=== PATIENT | female | born 1995 | race Asian ===

== ENCOUNTER 2016-05-02 04:49 | Day surgery (SDC) | payer OTHER ==
[2016-05-02] MEDS ORDERED: LACTATED RINGERS 1,000 ML ONE ×3 (04:57→08:18)
[2016-05-02 05:15] LABS: ABSOLUTE NEUTROPHIL COUNT 2.3 K/mm3 (1.8-7.7); BASO % 0.3 % (0.2-1.0); EOS # 0.1 (0.0-0.5); EOS % 1.4 % (0.9-2.9); HEMATOCRIT 31.1 % (37.0-47.0); HEMOGLOBIN 10.2 gm/l (12.0-16.0); IMM NEUT% 0.1 % (0-1); LYMPH # 4.4 (1.0-4.8); MEAN CELL VOLUME 89.4 fl (81.0-99.0); MEAN CORPUSCULAR HEMOGLOBIN 29.3 pg (27.0-31.0); MEAN CORPUSCULAR HGB CONC 32.8 g/dl (33.0-37.0); MEAN PLATELET VOLUME 9.2 fl (7.4-10.4); MONO # 0.5 (0.0-0.8); NEUT % 31.2 % (43-75); PLATELET COUNT 333 K/mm3 (130-400); RED CELL DISTRIBUTION WIDTH 11.9 % (11.5-14.5)
[2016-05-02 06:53] LABS: SPECIFIC GRAVITY 1.025 (1.001-1.030); URINE BILIRUBIN NEGATIVE (NEGATIVE); URINE BLOOD 4+ (NEGATIVE); URINE GLUCOSE (UA) NEGATIVE (NEGATIVE); URINE LEUKOCYTE ESTERASE NEGATIVE (NEGATIVE); URINE NITRITE NEGATIVE (NEGATIVE); URINE PROTEIN NEGATIVE (NEGATIVE); URINE UROBILINOGEN NORMAL (0-1 mg/dl)
[2016-05-02 06:54] LABS: URINE APPEARANCE SL CLOUDY; URINE COLOR YELLOW
[2016-05-02 07:01] LABS: HEMATOCRIT 25.9 % (37.0-47.0); HEMOGLOBIN 8.4 gm/l (12.0-16.0)
[2016-05-02 07:06] LABS: URINE RBC >100 /hpf; URINE WBC 0-1 /hpf
[2016-05-02] MEDS ORDERED: CEFAZOLIN SODIUM 2 GRAM PREMIX 100 ML IV PRN (08:21)
[2016-05-02] MEDS ORDERED: LIDOCAINE 1% 2 ML VIAL ID PRN (08:21)
--- NOTE | 2016-05-02 08:22 | US ---
Exam: Complete pelvic ultrasound COMPARISON: None INDICATION: 6 weeks with heavy bleeding. Evaluate for retained products of conception. FINDINGS: Transabdominal pelvic ultrasound was obtained. Patient refused transvaginal imaging. Uterus measures 10.9 x 6.3 x 7.2 cm and is overall homogeneous in echotexture. The central lower uterine segment is expanded by a heterogeneous focus of tissue which measures up to 4.1 x 4.8 x 4.7 cm. Endometrium within the fundus is normal at 10 mm. Neither ovary was visualized. There is minimal amount of free fluid in the pelvis, within physiologic range. IMPRESSION: Heterogeneous tissue within the lower uterine segment concerning for retained products of conception given the patient's history. Preliminary report transmitted to the emergency department from [facility] at 0657 hours 05/02/2016.
[2016-05-02] MEDS ORDERED: OXYTOCIN IN LR 500 ML IV ONE (08:23)
[2016-05-02] MEDS ORDERED: FENTANYL 100 MCG/2 ML VIAL ONE (08:36)
[2016-05-02] MEDS ORDERED: ONDANSETRON 4 MG/2ML 2 ML VIAL ONE (09:23)
[2016-05-02] MEDS ORDERED: KETOROLAC TROMETHAMINE 30 MG/ML 1 ML VIAL ONE (09:23)
[2016-05-02] MEDS ORDERED: OXYTOCIN 10 UNITS/ML VIAL ONE (09:23)
[2016-05-02] MEDS ORDERED: CEFAZOLIN SODIUM 1,000 MG VIAL ONE (09:23)
[2016-05-02] MEDS ORDERED: PROPOFOL 20 ML IV ONE (09:23)
[2016-05-02] MEDS ORDERED: METOCLOPRAMIDE HCL 5 MG/ML 2ML VIAL ONE (09:23)
[2016-05-02] MEDS ORDERED: PROMETHAZINE HCL 25 MG/ML VIAL IM PRN (09:43)
[2016-05-02] MEDS ORDERED: ONDANSETRON 4 MG/2ML 2 ML VIAL IV PRN (09:43)
[2016-05-02] MEDS ORDERED: NALOXONE HCL 0.4 MG/ML VIAL IV PRN (09:43)
[2016-05-02] MEDS ORDERED: MEPERIDINE 25 MG/ML SYRINGE IV PRN (09:43)
[2016-05-02] MEDS ORDERED: HYDRALAZINE HCL 20 MG/1 ML VIAL IV PRN (09:43)
[2016-05-02] MEDS ORDERED: MORPHINE SULFATE 4 MG/ML SYRINGE IV PRN (09:43)
[2016-05-02] MEDS ORDERED: ATROPINE SULFATE 0.4 MG/1 ML VIAL IV PRN (09:43)
[2016-05-02] MEDS ORDERED: OXYTOCIN 20 UNITS in LACTATED RINGERS 1,000 ML IV SCH (09:45)
[2016-05-02] MEDS ORDERED: DIPHENHYDRAMINE HCL 25 MG CAPSULE PO PRN (09:47)
[2016-05-02] MEDS ORDERED: OXYCODONE/ACETAMINOPHEN 5/325 MG TABLET PO PRN (09:47)
--- NOTE | 2016-05-02 11:32 | HP ---
KESHAWN MARTINEZ [id number] DATE OF : 1995 HISTORY OF PRESENT ILLNESS: This is a 21-year-old female who presented to the emergency room with heavy vaginal bleeding, onset was two days ago, and this morning she woke-up and passed some clots. She was seen in the emergency room. Her initial hemoglobin was 10.2. Her hemoglobin after starting an IV dropped to 8.4. She gives a history of having a twin gestation and delivery at [address] weeks [address] [facility] approximately six weeks ago. She complains of some dizziness. Ultrasound in the ER showed what appears to be retained products of conception, measuring roughly 5 x 5 x 5 cm in greatest dimensions. OB HISTORY: G-1, P-0, 1-0-0. Twin gestation and delivery at 23 weeks. The babies did not survive. The patient states that she had premature rupture of membranes. ELECTRICAL ENGINEER MEP HISTORY: Menarche 13 x 30 x 5-6. STDs negative. PAST MEDICAL HISTORY: Negative. ALLERGIES: Negative. MEDICATIONS: Negative. SOCIAL HISTORY: Nonsmoker and nondrinker. PAST SURGICAL HISTORY: Negative. FAMILY HISTORY: Negative. REVIEW OF SYSTEMS: As above. PHYSICAL EXAMINATION: GENERAL: A healthy female in no acute distress. HEENT: Normal. NECK: Supple. Thyroid not palpable. BREASTS: Soft. No masses. HEART: Regular sinus rhythm. No murmurs. LUNGS: Clear. ABDOMEN: Flat and benign. PELVIC: External genitalia healthy. Vagina had about 10 mL of blood present in the vagina on speculum exam. The cervix was fingertip dilated, mildly tender. The uterus was 8-10 week size and midposition. The adnexa were negative. IMPRESSION: Delayed hemorrhage and retained products of conception. PLAN: A D&C and possible suction curettage. The risks, reasons, complications, living will and alternatives were discussed, all in layperson's terms, and all questions answered.
[2016-05-02 12:08] VITALS: BMI 21.3
[2016-05-02 13:54] VITALS: BP 88/48
[2016-05-02 14:15] LABS: SPECIFIC GRAVITY 1.015 (1.001-1.030); URINE BILIRUBIN NEGATIVE (NEGATIVE); URINE BLOOD 4+ (NEGATIVE); URINE GLUCOSE (UA) NEGATIVE (NEGATIVE); URINE LEUKOCYTE ESTERASE TRACE (NEGATIVE); URINE NITRITE NEGATIVE (NEGATIVE); URINE PROTEIN NEGATIVE (NEGATIVE); URINE UROBILINOGEN NORMAL (0-1 mg/dl)
[2016-05-02 14:17] LABS: URINE APPEARANCE CLOUDY; URINE COLOR LIGHT YELLOW
[2016-05-02 14:27] LABS: URINE EPITHELIAL CELLS 0-1 /hpf; URINE RBC >100 /hpf; URINE WBC NEG /hpf
[2016-05-02 14:28] LABS: URINE BACTERIA FEW
[2016-05-02] MEDS ORDERED: IBUPROFEN 800 MG TABLET PO PRN (15:30)
--- NOTE | 2016-05-02 16:28 | OP ---
KESHAWN MARTINEZ [id number] DATE OF : 1995 NAME OF OPERATION: REMOVAL OF PRODUCTS OF CONCEPTION MANUALLY, FOLLOWED BY UTERINE CURETTAGE. PREOPERATIVE DIAGNOSIS: Delayed hemorrhage, retained products of conception and anemia. POSTOPERATIVE DIAGNOSIS: Delayed hemorrhage, retained products of conception and anemia. SOFTWARE DEVELOPER INTERN: Dr. Ty Baeza ANESTHESIA: Cassi Coelho CRNA, general anesthesia. DESCRIPTION OF PROCEDURE: With the patient under general anesthesia, the local area was prepared with betadine and draped in the usual manner. After a time-out was performed, exam under anesthesia revealed the external genitalia healthy. Vagina showed about 10 mL of blood present. The cervix was now dilated 2 cm, with aborting products of conception noted at the os. The uterus was six week size and anteverted. The adnexa negative. PROCEDURE: A duckbill speculum was inserted into the vagina gently. The anterior lip of the cervix was grasped with a ring forceps. The products of conception were grasped with another ring forceps and manually removed. There was no need to dilate the cervix. The cervix after removal of the products of conception was 2 cm dilated. The uterus was sounded to 7 cm and then curettage from the endometrial cavity produced no further curettings and there was a gritty sensation appreciated over the entire endometrial cavity. Products of conception were inspected. There were approximately 5 cm in diameter of products of conception noted. The uterus was massaged manually and the bleeding was controlled after manual massage. The patient did receive Pitocin during the procedure and Ancef preoperatively. After this, all of the vaginal instruments were removed. Sponge and instrument count report is correct, and there was complete hemostasis. Estimated blood loss for the procedure was 50 mL. The patient tolerated the procedure well and was returned to the recovery room in stable condition. FINAL DIAGNOSIS: As above.
--- NOTE | 2016-05-02 16:42 | DS ---
KESHAWN MARTINEZ [id number] DATE OF : 1995 HOSPITAL COURSE: A 21-year-old female presented to the emergency room with retained products of conception following a twin gestation and premature delivery at 23 weeks. Six weeks prior to presenting to the emergency room she presented with uterine and vaginal bleeding. At the time in the emergency room the cervix was closed and the ultrasound showed an approximately 5 cm diameter mass in the uterus, suggestive of retained products of conception. She underwent a uterine curettage and manual removal of the products of conception under anesthesia. She tolerated the procedure well and was sent home in good condition, and advised office visit in one week's time. Activities were explained to the patient prior to her going under anesthesia. LABS: Laboratory values included a hemoglobin of 8.4 and white count 7.3. Chemistry; glucose 121 and potassium 3.4. Urinalysis showed 4+ blood. Her blood type was Rh positive. DISCHARGE MEDICATIONS: On discharge she was given: 1. Iron. 2. Methergine. 3. Percocet. 4. Motrin. 5. Amoxicillin. FINAL DIAGNOSIS: As above.
--- NOTE | 2016-05-06 16:09 | SURGPATH ---
[facility] [address] [place] [id number] Patient Name: KESHAWN MARTINEZ MR#: [id number] : 1995 Gender: F Specimen #: [id number] Collected: 05/02/2016 Received: 05/05/2016 Reported: 05/06/2016 Submitting Phys: LUPIS HAMM I Copy To Phys: [facility] - HIM Clinical History / Pre-Operative Diagnosis: Late hemorrhage, retained POC Specimen Source / Surgical Procedure Performed: PSC-uterine contents Interpretation: UTERINE CONTENTS: - CHORIONIC VILLI IDENTIFIED Electronically Signed Out Justo Simmons M.D. Gross Description: The specimen is received in formalin labeled with the patient's name and "POC uterine contents". The specimen consists of a 50 g, 7.5 x 7.0 x 2.0 cm aggregate of clotted blood and possible soft or placental tissue. tissue is not identified. A-D. textile machinery sales representative SALVADOR Garrett Microscopic Description: Sections contain abundant blood with embedded poorly preserved immature chorionic villi. tissues are not identified. 1: [id number] O43.893
== END 2016-05-02 14:23 | disposition home or self-care (01) ==
LOC: ED 04:49 → SDC 08:15 → SUPCPDRO 08:15 → OR 08:15 → MS 10:00 → SDC 14:23
PROVIDERS: ATTEND Obstetrics & Gynecology
PROC: 10D17ZZ Extraction of Products of Conception, Retained, Via Natural or Artificial Opening (ICD-10-PCS; principal; 2016-05-02)
DX: O72.2 Delayed and secondary postpartum hemorrhage (principal); O90.81 Anemia of the puerperium